=== PATIENT | female | born 1975 | race Caucasian/White ===

== ENCOUNTER 2019-10-08 00:52 | Emergency (ER) | payer BC, SELFPAY ==
--- NOTE | ~2019-10-08 | XR_ITS ---
XR hand LT 2V DATE: 10/08/2019 03:05 INDICATION: Pain in third and fourth digits. TECHNIQUE: 3 views COMPARISON: 05/06/2015 left hand FINDINGS: No fracture, dislocation, periosteal reaction or bone destruction. Joint spaces are preserv ed. No erosive change or chondrocalcinosis. IMPRESSION: No acute finding Reviewed, dictated and finalized at location A. HOLOGICAL OPERATIONS IMPRESSION: No acute finding
--- NOTE | ~2019-10-08 | XR_ITS ---
XR hand RT 2V DATE: 10/08/2019 03:03 INDICATION: Medial wrist and third digit pain TECHNIQUE: 3 views COMPARISON: None FINDINGS: There is considerable deformity and some increased density of the navicular bone, chronic, likely due to avascular necrosis secondary to prior fracture. Positive ulnar variance. No fracture, dislocation, periosteal reaction or bone destruction. IMPRESSION: Chronic deformity and increased density of the navicular bone likely related to old fract ure and secondary avascular necrosis Positive ulnar variance. Reviewed, dictated and finalized at location A. ENSATION AND BENEFITS ANALYST IMPRESSION: Chronic deformity and increased density of the navicular bone likel y related to old fracture and secondary avascular necrosis Positive ulnar variance.
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
== END 2019-10-08 01:50 | disposition home or self-care (01) ==
PROVIDERS: Emergency Provider Emergency Medicine; PCP Internal Medicine
DX: S66.811A Strain of other specified muscles, fascia and tendons at wrist and hand level, right hand, initial encounter (principal); S66.812A Strain of other specified muscles, fascia and tendons at wrist and hand level, left hand, initial encounter; F41.9 Anxiety disorder, unspecified; F32.9 Major depressive disorder, single episode, unspecified; Z87.442 Personal history of urinary calculi; I34.1 Nonrheumatic mitral (valve) prolapse; G25.81 Restless legs syndrome; W22.8XXA Striking against or struck by other objects, initial encounter
CPT/HCPCS: 73120; 99284

== ENCOUNTER 2023-07-14 16:06 | Emergency (ER) | payer BC, SELFPAY ==
[2023-07-14 17:10] VITALS: BP 117/81; PULSE 119; RESP 16; TEMP 38.1; O2SAT 98
[2023-07-14 17:12] VITALS: BP 117/81; PULSE 119; RESP 16; TEMP 38.1; O2SAT 98
[2023-07-14] MEDS: ONDANSETRON HCL ODT 4 MG TABLET PO (17:33)
--- NOTE | 2023-07-14 18:18 | ED.URI ---
HPI - URI/Sore Throat General Chief Complaint: Upper Respiratory Infection Stated Complaint: Chest congestion;Headache;body ache;sore throat Time Seen by Provider: 07/14/23 18:10 Source: patient, RN notes reviewed and old records reviewed Mode of arrival: ambulatory Limitations: no limitations History of Present Illness HPI Narrative: 48-year-old female presents to [facility] with complaints of cough,chest congestion, sore throat ,headache, body ache, chills since 0300 today. She reports that she had a cough yesterday but other symptoms during the night. Patient reports that she has been unable to keep anything down she throws up even water. Patient reports no known ill contacts.Patient reports that she went to emergency room but too long of wait time there, hoping to get IV fluids. MD elicited complaint: cough, sore throat and other (body aches, chills and fever, nausea and vomiting) Onset (ago): day(s) (1) Pain scale (0-10): 4 Able to tolerate fluids by mouth: No Treatments prior to arrival: acetaminophen Related Data Home Medications Medication Instructions Recorded Confirmed progesterone micronized 100 mg 100 mg PO DAILY 07/09/19 07/14/23 capsule estradiol 2 mg tablet 2 mg PO DAILY 07/14/23 07/14/23 hydrochlorothiazide 25 mg tablet 25 mg PO DAILY 07/14/23 07/14/23 semaglutide (weight loss) 2.4 2.4 mg subcut WEEKLY 07/14/23 07/14/23 mg/0.75 mL subcutaneous pen injector (Wegovy) thyroid (pork) 60 mg tablet 60 mg PO DAILY 07/14/23 07/14/23 ([place] Thyroid) Allergies Allergy/AdvReac Type Severity Reaction Status Date / Time hydrocodone Allergy Mild NAUSEA Verified 04/28/19 13:02 FROM LORTAB acetaminophen Allergy Unknown Rash Verified 07/14/23 17:01 codeine Allergy Unknown Rash Verified 07/14/23 17:01 procaine Allergy Unknown CHILD Verified 04/28/19 13:02 SWELLING?? Review of Systems Review of Systems: CONSTITUTIONAL: Reports malaise, chills, sweats, or fever. EYES: Denies visual changes, redness, or discharge. ENT: Reports rhinorrhea, congestion, sinus pain,no otalgia and positive for sore throat. CARDIOVASCULAR: Denies chest pain, palpitations, or edema. RESPIRATORY: Reports cough.? Denies dyspnea. GASTROINTESTINAL: Denies abdominal pain, positive nausea, vomiting, no diarrhea SKIN: Denies rash or itching. MUSCULOSKELETAL:Positive for myalgia. NEUROLOGIC: Positive headache. All systems reviewed & are unremarkable except as noted in HPI and below PMFSH Past Medical History Medical History (Updated 07/16/23 @ 11:07 by Marychuy Singh NP) Anxiety Bronchitis Depression Foot fracture, right Kidney stones Mitral valve prolapse Restless leg syndrome URI (upper respiratory infection) Uterine fibroid Surgical History Surgical History History of hysterectomy Hx of breast augmentation Hx of tonsillectomy Family History Family History Mother Hypertension Social History Social History Smoking status: Former smoker Smoking end date: 08/18/96 Alcohol intake: current Gender identity (if verbalized by the patient): Female Comments At time of signature, agree with nursing past medical, surgical, social and family history. There is no relevant family history pertinent to the presenting complaint Exam Narrative: GENERAL:Ill appearing, well-nourished, and in no acute distress. HEAD: Normocephalic EYES: PERRLA, conjunctivae clear ENT: Nares clear, turbinates edematous and erythematous, clear discharge. Mucous membranes moist. TM pearly albarado with dull light reflex bilaterally; no tragal tenderness. Oropharynx erythematous without lesions. Tonsils not present and throat without exudate, no drooling, no hoarseness, no trismus, uvula midline.post nasal drainage NECK: Supple. No lymphadenop
--- NOTE | 2023-07-14 19:47 | PC.NURSE ---
1800- ice chips given for po challenge
== END 2023-07-14 19:39 | disposition home or self-care (01) ==
PROVIDERS: Emergency Provider Registered Nurse; PCP Nurse Practitioner Family
DX: U07.1 COVID-19 (principal); R11.2 Nausea with vomiting, unspecified; Z87.891 Personal history of nicotine dependence
CPT/HCPCS: 87081; 87426; 87804; 87880; 99213; A9270; C9803; G0463

== ENCOUNTER 2024-08-13 14:03 | Emergency (ER) | payer BC, SELFPAY ==
[2024-08-13 14:22] VITALS: BP 102/67; PULSE 89; RESP 16; TEMP 36.8; O2SAT 99
--- NOTE | 2024-08-13 15:08 | ED.GENADULT ---
HPI - General Adult General Chief complaint: Upper Respiratory Infection Stated complaint: URI Time Seen by Provider: 08/13/24 15:08 Source: patient, RN notes reviewed and old records reviewed Mode of arrival: ambulatory Limitations: no limitations History of Present Illness HPI narrative: 49-year-old female presents to the [facility] with complaints cough, congestion, upper respiratory symptoms. At times a productive cough. States she mostly has a green productive cough in the morning, clears up throughout the day. Has taken Mucinex and DayQuil. Patient states it has been going on since Thanksgiving so approximately 4-5 weeks. States when it 1st started she did have some fevers, body aches. At that time did test negative for flu and COVID. Treatments prior to arrival: other (Cold medication) Related Data Home Medications ?Medication ?Instructions ?Recorded ?Confirmed ?Last Taken ?Type progesterone micronized 100 mg 100 mg PO DAILY 07/09/19 07/14/23 Unknown History capsule estradiol 2 mg tablet 2 mg PO DAILY 07/14/23 07/14/23 Unknown History hydrochlorothiazide 25 mg tablet 25 mg PO DAILY 07/14/23 07/14/23 Unknown History semaglutide (weight loss) 2.4 2.4 mg subcut WEEKLY 07/14/23 07/14/23 Unknown History mg/0.75 mL subcutaneous pen injector (Wegovy) thyroid (pork) 60 mg tablet 60 mg PO DAILY 07/14/23 07/14/23 Unknown History ([place] Thyroid) Allergies Allergy/AdvReac Type Severity Reaction Status Date / Time hydrocodone Allergy Mild NAUSEA Verified 04/28/19 13:02 FROM LORTAB acetaminophen Allergy Unknown Rash Verified 07/14/23 17:01 codeine Allergy Unknown Rash Verified 07/14/23 17:01 procaine Allergy Unknown CHILD Verified 04/28/19 13:02 SWELLING?? Review of Systems Review of Systems: All systems reviewed & are unremarkable except as noted in HPI and below Constitutional: Constitutional: Reports no additional constitutional complaints ENT: Reports as per HPI Cardiovascular: Cardiovascular: Reports no additional cardiovascular complaints, Denies chest pain and Denies dyspnea Respiratory: Respiratory: Reports as per HPI, Reports chest congestion, Reports cough and Denies dyspnea Musculoskeletal: Musculoskeletal: Reports no additional musculoskeletal complaints Integumentary/Breasts: Skin/Breast: Reports system reviewed and no additional complaints, except as docu PMFSH Past Medical History Medical History Anxiety Foot fracture, right Restless leg syndrome Kidney stones Uterine fibroid Mitral valve prolapse Bronchitis URI (upper respiratory infection) Depression Surgical History Surgical History Hx of breast augmentation Hx of tonsillectomy History of hysterectomy Family History Family History Mother Hypertension Social History Social History Smoking status: Former smoker Smoking end date: 08/18/96 Alcohol intake: current Gender identity (if verbalized by the patient): Female Comments At the time of my signature, I reviewed and agree with the nursing past medical, surgical, social, and family history. There is no relevant family history pertinent to the patient complaint. Exam Const: General: cooperative, healthy appearing, comfortable, no acute distress, well developed, alert and well nourished Nutritional Appearance: well nourished Orientation/consciousness: patient oriented x3 Limitations: no limitations HENMT: Head: normal to inspection Ears: hearing grossly normal bilaterally, external ears normal, TM's normal bilaterally, EAC's normal, mastoids normal and no periauricular adenopathy Face/Nose/Sinus: normal facial exam and face symmetric Face and sinus: normal facial exam and face symmetric Mouth: Yes Normal oral and palatal mucosa present, Yes lip normal, Yes tongue normal and Yes moist mucous membranes Throat: uvula midline, posterior oropharynx abnormal cobblestoning and erythema; no edema and no exudates, postnasal drainage and no uvular edema Eyes: General: appearance normal, both eyes and all related structures Neck: Neck: normal visual inspection, full ROM, no lymphadenopathy and no meningeal signs Chest: Chest palpation & inspection: normal inspection of the chest Resp: Effort & Inspection: normal respiratory effort and able to speak in complete sentences Auscultation: clear to auscultation bilaterally, no crackles, no rales, no rhonchi and no wheezes Cardio: Rate: regular rate Skin: General skin exam: normal color and no rashes or lesions noted Neuro: General: patient oriented x3, gait normal, moves all extremities and no meningeal signs Cognition (Neuro): normal cognition Speech: normal speech Gait exam (Neuro): Normal gait present Extrem: General: normal to inspection, full ROM, capillary refill normal and normal gait Psych: Appearance: grossly normal and well kempt Mental Status: mental status grossly normal Speech and movement: Normal speech and movement present and Clear speech present Affect: normal affect Attitude: cooperative Course Course Level of Care: Express Care Visit Vital Signs Vital signs: Vital Signs Temperature 98.2 F 08/13/24 14:22 Pulse Rate 89 08/13/24 14:22 Respiratory Rate 16 08/13/24 14:22 Blood Pressure 102/67 08/13/24 14:22 Pulse Oximetry 99 08/13/24 14:22 Oxygen Delivery Room Air 08/13/24 14:22 Temperature 98.2 F 08/13/24 14:22 Pulse Rate 89 08/13/24 14:22 Respiratory Rate 16 08/13/24 14:22 Blood Pressure 102/67 08/13/24 14:22 Pulse Oximetry 99 08/13/24 14:22 Oxygen Delivery Room Air 08/13/24 14:22 Reviewed Medical Decision Making MDM Narrative Medical decision making narrative: Patient sitting comfortably in exam room. Nontoxic, vitals stable. Patient in no acute distress Patient presents for 4-5 weeks of URI symptoms. Due to length of symptoms will treat with a steroid and antibiotic. Discussed that if this is viral that neither the inhaler, steroid or antibiotic will do much of anything. Discussed importance of following up with primary care provider. Patient appropriate for outpatient treatment and follow-up Discharge instructions reviewed with patient, as well as provided in writing per nursing staff. The instructions also include specific and strict return/GO TO THE ER as well as f/u information. All questions have been answered, and the patient deny any further questions with discharge and discharge plan. Some parts of this dictation were generated by voice recognition software and may contain typographical and/or grammatical inaccuracies. Differential Diagnosis Differential Diagnosis: Bronchitis pneumonia, URI Medical Records Medical records reviewed: Yes I reviewed the external patient's medical records. Vital Signs Vital Signs: Vital Signs Temperature 98.2 F 08/13/24 14:22 Pulse Rate 89 08/13/24 14:22 Respiratory Rate 16 08/13/24 14:22 Blood Pressure 102/67 08/13/24 14:22 Pulse Oximetry 99 08/13/24 14:22 Oxygen Delivery Room Air 08/13/24 14:22 Temperature 98.2 F 08/13/24 14:22 Pulse Rate 89 08/13/24 14:22 Respiratory Rate 16 08/13/24 14:22 Blood Pressure 102/67 08/13/24 14:22 Pulse Oximetry 99 08/13/24 14:22 Oxygen Delivery Room Air 08/13/24 14:22 Reviewed Lab Data Lab results reviewed: Yes I reviewed the patient's lab results. Labs: Reviewed Critical Care Time Critical Care Time Critical Care Time: No Discharge Plan Discharge Clinical Impression: Bronchitis Patient Disposition: Home, Self-Care Condition: Stable Instructions: Antibiotic Form, Acute Bronchitis (ED) Additional Instructions: It is very important to treat your symptoms. Drink plenty of water, Gatorade, Pedialyte, ice pops or Jell-O. -Alternate Tylenol and Motrin per package directions for fever or pain. You can alternate every 4 hours -Antihistamine medication such as Zyrtec/Claritin/Ashley during the day can help improve symptoms. -doing daily nasal irrigations can help relieve pressure your sinuses. Things like a Neti pot -Use Flonase twice a day for 5 days then daily to help reduce the inflammation and dry up your sinuses. -You can also use Mucinex. Be sure to drink plenty of water with this medication at least 8 ounces with every dose and it is important to drink 8 to 10 glasses of water per day. Water is a natural decongestant -Eat and drink things that are easy to swallow, like tea or soup, or popsicles. -Oral rinses such as: Salt water gargles and/or may use topical anesthetic (eg. Chloraseptic spray) or lozenges to relieve dryness or throat pain). -Frequent hand washing or hand livestock haulier is one of the best ways to prevent spread of infection. -Using a vaporizer or humidifier at night will also help thin secretions and help with coughing up phlegm. -Follow up with primary care provider in 7-10 days if condition is not improving - For new or worsening symptoms go directly to the nearest ER Patient Language: Turkish Prescriptions: New doxycycline monohydrate 100 mg tablet 100 mg PO BID Qty: 14 0RF prednisone 20 mg tablet See Rx Instructions .Route .COMPLEX Qty: 9 0RF Rx Instructions: Take 40 mg daily for 3 days, 20 mg daily for 3 days albuterol sulfate 90 mcg/actuation HFA aerosol inhaler 2 puff inhalation QID PRN (Reason: shortness of breath or wheezing) Qty: 6.7 0RF (DME) Aerochamber MV Spacer See Rx Instructions .Route Qty: 1 0RF Rx Instructions: As directed No Action estradiol 2 mg tablet 2 mg PO DAILY Wegovy 2.4 mg/0.75 mL pen injector 2.4 mg SUBCUT WEEKLY hydrochlorothiazide 25 mg tablet 25 mg PO DAILY thyroid (pork) [[place] Thyroid] 60 mg tablet 60 mg PO DAILY ondansetron 4 mg tablet,disintegrating 4 mg PO Q6H PRN (Reason: nausea and vomiting) Qty: 20 0RF progesterone micronized 100 mg capsule 100 mg PO DAILY Follow-up/Referrals: JANE,SAMI CANTU [Primary Care Provider] - 2 Weeks ([facility] follow-up) Stand Alone Forms: Work/School Release IP Time of Disposition: 15:21
== END 2024-08-13 15:25 | disposition home or self-care (01) ==
PROVIDERS: Emergency Provider Nurse Practitioner; PCP Nurse Practitioner Family
DX: J40 Bronchitis, not specified as acute or chronic (principal); Z87.891 Personal history of nicotine dependence; G25.81 Restless legs syndrome; I34.1 Nonrheumatic mitral (valve) prolapse
CPT/HCPCS: 99213; G0463

== ENCOUNTER 2025-01-26 01:27 | Day surgery (SDC) | payer BC, SELFPAY ==
[2025-01-14 13:57] VITALS: BMI 25.2
[2025-01-26 11:17] VITALS: BMI 25.2
[2025-01-26 11:23] VITALS: BP 125/84; PULSE 89; RESP 18; TEMP 36.6; O2SAT 100
[2025-01-26] MEDS: LACTATED RINGERS 1,000 ML 150 ML IV CONT (11:35)
--- NOTE | 2025-01-26 11:44 | P.PNAN_ITS ---
Anes - Initial Pre Proc Eval Procedure: Operation Date: 01/26/25 12:30 Proposed Procedures p Screening Colonoscopy - Hussein Man MD Date/Time: 01/26/25 11:44 Surgeon: Hussein Man MD Pre Op Diagnosis: Screening Patient Data Age: 49 Gender: F Height: 1.45 m Weight: 52.8 kg Last Vital Signs Temp 36.6 C 01/26/25 11:23 Pulse 89 01/26/25 11:23 Resp 18 01/26/25 11:23 BP 125/84 01/26/25 11:23 Pulse Ox 100 01/26/25 11:23 O2 Del Method Room Air 01/26/25 11:23 Allergies Allergy/AdvReac Type Severity Reaction Status Date / Time bupropion (From Wellbutrin) Allergy Severe Anaphylactic Verified 01/14/25 13:51 Shock hydrocodone Allergy Mild NAUSEA Verified 01/14/25 13:51 FROM LORTAB acetaminophen Allergy Unknown Rash Verified 01/14/25 13:51 codeine Allergy Unknown Rash Verified 01/14/25 13:51 procaine Allergy Unknown CHILD Verified 01/14/25 13:51 SWELLING?? Home Medications ?Medication ?Instructions ?Recorded ?Confirmed ?Type progesterone micronized 100 mg 200 mg PO DAILY 07/09/19 01/14/25 History capsule estradiol 2 mg tablet 2 mg PO DAILY 07/14/23 01/14/25 History hydrochlorothiazide 25 mg tablet 25 mg PO DAILY PRN swelling 07/14/23 01/14/25 History ondansetron 4 mg disintegrating 4 mg PO Q6H PRN nausea and 07/14/23 01/14/25 Rx tablet vomiting #20 tabs semaglutide (weight loss) 2.4 2.4 mg subcut WEEKLY 07/14/23 01/14/25 History mg/0.75 mL subcutaneous pen injector (Wegovy) thyroid (pork) 60 mg tablet 60 mg PO DAILY 07/14/23 01/14/25 History ([place] Thyroid) inhalational spacing device #1 ea 08/13/24 Rx (Aerochamber MV spacer) E2/E3/Progesterone/Testosterone applic topical .three times weekly 01/14/25 History 1.25/60MG/1MG/GM Topical Cream 1 #1 tube tube cream aripiprazole 2 mg tablet (Abilify) 2 mg PO DAILY 01/14/25 01/14/25 History estradiol 0.01% (0.1 mg/gram) 1 g vaginal 3XW 01/14/25 01/14/25 History vaginal cream (Estrace) vitamin B complex 1 tablet PO DAILY 01/14/25 01/14/25 History vitamin D3 250 mcg (10,000 1 cap PO DAILY 01/14/25 01/14/25 History unit)-vitamin K2 45 mcg capsule Patient hx anesthesia problems: none Family hx anesthesia problems: none Results Review: All pre-operative results and documents have been reviewed as part of the pre-operative evaluation. [facility] Past Medical History Medical History Anxiety Foot fracture, right Restless leg syndrome Kidney stones Uterine fibroid Mitral valve prolapse Bronchitis URI (upper respiratory infection) Depression Surgical History Surgical History Hx of breast augmentation Hx of tonsillectomy History of hysterectomy Family History Family History Mother Hypertension Social History Social History Smoking packs per day: 0.25 Smoking cigarettes per day: 5.0 Years smoked: 6 Smoking pack-years: 1.50 Smoking status: Former smoker Smoking end date: 08/18/96 Alcohol intake: never Substance use: never Substance use type: marijuana Other substance usage details: Marijuana use daily, gummies HS Living arrangements: with family Gender identity (if verbalized by the patient): Female Spiritual care concerns: No Anes - Eval Final PreProcedure Day of Procedure 01/26/25 11:44 Patient weight: normal Heart: regular rate and rhythm Lungs: clear to auscultation Airway: Mallampati scale class II Neurological: alert and oriented Last oral intake: >/= 8 hours ASA classification: II Emergent: no Anesthetic plan: proceed Anesthesia type and monitoring: general GIVS and standard monitoring Results Review: All pre-operative results and documents have been reviewed as part of the pre- operative evaluation. Informed Consent: The patient's anesthetic plan and its attendant risks and benefits were discussed with the patient/family/POA. Questions were solicited and answers provided to the satisfaction of the patient/family/POA.
--- NOTE | 2025-01-26 12:18 | PM.HPGS ---
History of Present Illness History of Present Illness Consent: Risks, benefits, and alternatives have been discussed and questions answered. Patient agrees to proceed with procedure. Chief complaint: Screening Narrative: Ana Thakkar is a 49 year old female here for screening colonoscopy, last one at 40 yo Review of Systems Review of Systems: All systems reviewed & are unremarkable except as noted in HPI and below PMFSH Past Medical History Medical History (Updated 01/26/25 @ 12:19 by Hussein Man MD) Colon cancer screening Anxiety Foot fracture, right Restless leg syndrome Kidney stones Uterine fibroid Mitral valve prolapse Bronchitis URI (upper respiratory infection) Depression Surgical History Surgical History Hx of breast augmentation Hx of tonsillectomy History of hysterectomy Family History Family History Mother Hypertension Social History Social History Smoking packs per day: 0.25 Smoking cigarettes per day: 5.0 Years smoked: 6 Smoking pack-years: 1.50 Smoking status: Former smoker Smoking end date: 08/18/96 Alcohol intake: never Substance use: never Substance use type: marijuana Other substance usage details: Marijuana use daily, gummies HS Living arrangements: with family Gender identity (if verbalized by the patient): Female Spiritual care concerns: No Meds Home Medications and Allergies Home Medications ?Medication ?Instructions ?Recorded ?Confirmed ?Type progesterone micronized 100 mg 200 mg PO DAILY 07/09/19 01/14/25 History capsule estradiol 2 mg tablet 2 mg PO DAILY 07/14/23 01/14/25 History hydrochlorothiazide 25 mg tablet 25 mg PO DAILY PRN swelling 07/14/23 01/14/25 History ondansetron 4 mg disintegrating 4 mg PO Q6H PRN nausea and 07/14/23 01/14/25 Rx tablet vomiting #20 tabs semaglutide (weight loss) 2.4 2.4 mg subcut WEEKLY 07/14/23 01/14/25 History mg/0.75 mL subcutaneous pen injector (Wegovy) thyroid (pork) 60 mg tablet 60 mg PO DAILY 07/14/23 01/14/25 History ([place] Thyroid) inhalational spacing device #1 ea 08/13/24 Rx (Aerochamber MV spacer) E2/E3/Progesterone/Testosterone applic topical .three times weekly 01/14/25 History 1.25/60MG/1MG/GM Topical Cream 1 #1 tube tube cream aripiprazole 2 mg tablet (Abilify) 2 mg PO DAILY 01/14/25 01/14/25 History estradiol 0.01% (0.1 mg/gram) 1 g vaginal 3XW 01/14/25 01/14/25 History vaginal cream (Estrace) vitamin B complex 1 tablet PO DAILY 01/14/25 01/14/25 History vitamin D3 250 mcg (10,000 1 cap PO DAILY 01/14/25 01/14/25 History unit)-vitamin K2 45 mcg capsule Allergies Allergy/AdvReac Type Severity Reaction Status Date / Time bupropion (From Wellbutrin) Allergy Severe Anaphylactic Verified 01/14/25 13:51 Shock hydrocodone Allergy Mild NAUSEA Verified 01/14/25 13:51 FROM LORTAB acetaminophen Allergy Unknown Rash Verified 01/14/25 13:51 codeine Allergy Unknown Rash Verified 01/14/25 13:51 procaine Allergy Unknown CHILD Verified 01/14/25 13:51 SWELLING?? Vital Signs Vital Signs - 24 hr 01/26/25 11:23 Temperature 97.9 F Pulse Rate 89 Respiratory Rate 18 Blood Pressure 125/84 Pulse Oximetry 100 Oxygen Delivery Room Air Exam Const: General: comfortable and no acute distress HENMT: Face/Nose/Sinus: Normal nares present Eyes: General: appearance normal, both eyes and all related structures Neck: Neck: no JVD Resp: Auscultation: clear to auscultation bilaterally Cardio: Rate: regular rate Rhythm: regular rhythm GI: Inspection: non-distended GI Palp: Yes Soft to palpation Skin: General skin exam: normal color Neuro: General: gait normal Speech: normal speech Extrem: General: normal to inspection Psych: Mental Status: mental status grossly normal Assessment and Plan Assessment and plan (1) Colon cancer screening: Code(s): Z12.11 - Encounter for screening for malignant neoplasm of colon Status: Acute Assessment and Plan: colonoscopy
[2025-01-26 12:32] VITALS: BP 100/66; PULSE 82; RESP 17; O2SAT 100
[2025-01-26 12:42] VITALS: BP 102/65; PULSE 88; RESP 17; O2SAT 100
[2025-01-26 12:52] VITALS: BP 105/74; PULSE 83; RESP 17; O2SAT 100
== END 2025-01-26 13:00 | disposition home or self-care (01) ==
PROVIDERS: PCP Nurse Practitioner Family; Referring Provider Nurse Practitioner Family; Visit Provider Internal Medicine Gastroenterology
PROC: 0DJD8ZZ Inspection of Lower Intestinal Tract, Via Natural or Artificial Opening Endoscopic (ICD-10-PCS; CPT 45378; principal; 2025-01-26 12:30)
DX: Z12.11 Encounter for screening for malignant neoplasm of colon (principal); K64.8 Other hemorrhoids; Z87.891 Personal history of nicotine dependence; F12.90 Cannabis use, unspecified, uncomplicated
CPT/HCPCS: 45378; J2003; J2704; J7120